=== PATIENT | female | born 1970 | race African-American/Black ===

== ENCOUNTER 2018-01-09 08:03 | Emergency (ER) | payer MEDICAID, OTHER ==
[~2018-01-09] VITALS: Ht 165.1 cm; Wt 85.0 kg
[~2018-01-09 08:03] MED LIST: ALPR2TAB2 PO; CALC1TAB17 PO; D-ME473S8 PO; ESZO2TAB30 PO; HYDR-4009 PO; NAPR-681 PO; ZOLP10TA2 PO
[2018-01-09 08:04] VITALS: BP 129/59
[2018-01-09 09:32] LABS: CHLORIDE 112 mEq/L (98-107)
[2018-01-09 09:33] LABS: PROTHROMBIN TIME 10.2 sec (9.4-11.6)
[2018-01-09 09:34] LABS: EOSINOPHILS % 1.2 % (0.0-5.0); HEMATOCRIT. 35.1 % (36.0-48.0); HEMOGLOBIN. 11.8 g/dL (12.0-16.0); LYMPHOCYTES % 21.3 % (20.0-50.0); MEAN CORPUSCULAR HEMOGLOBIN 29.6 pg (28.0-32.0); MEAN CORPUSCULAR VOLUME 88.2 fL (81.0-99.0); MEAN PLATELET VOLUME 8.2 fl (7.4-10.4); MONOCYTES % 6.6 % (2.0-8.0); NEUTROPHILS % 69.9 % (40.0-76.0); PLATELET 279 x1000/uL (130-400); RED BLOOD CELL COUNT 3.98 mill/uL (4.2-5.4); RED CELL DISTRIBUTION WIDTH 13.4 % (11.6-14.6)
[2018-01-09 09:54] LABS: HCG SCREEN NEGATIVE
[2018-01-09] MEDS ORDERED: LORAZEPAM 0.5MG TABLET PO ONE (10:30)
== END 2018-01-09 10:54 | disposition home or self-care (01) ==
LOC: ER 08:23
DX: F41.1 Generalized anxiety disorder (principal); F41.9 Anxiety disorder, unspecified; I10 Essential (primary) hypertension; Z88.0 Allergy status to penicillin; Z88.2 Allergy status to sulfonamides
CPT/HCPCS: 36415; 71045; 80053; 84484; 84703; 85025; 85610; 93005; 99285

== ENCOUNTER 2018-02-02 02:11 | Emergency (ER) | payer MEDICAID ==
[~2018-02-02] VITALS: Ht 167.6 cm; Wt 92.0 kg
[2018-02-02] MEDS ORDERED: KETOROLAC 60MG/2ML VIAL IM ONE (03:00)
[2018-02-02 05:25] VITALS: BP 120/58
== END 2018-02-02 05:58 | disposition home or self-care (01) ==
LOC: ER 02:54
DX: M25.572 Pain in left ankle and joints of left foot (principal); M79.672 Pain in left foot; I10 Essential (primary) hypertension; Z88.2 Allergy status to sulfonamides; Z88.0 Allergy status to penicillin; Z98.890 Other specified postprocedural states; Z96.659 Presence of unspecified artificial knee joint
CPT/HCPCS: 73610; 73630; 96372; 99284; J1885; Z7610

== ENCOUNTER 2018-06-30 11:36 | Emergency (ER) | payer MEDICAID ==
[~2018-06-30] VITALS: Ht 167.6 cm; Wt 93.0 kg
[~2018-06-30 11:36] MED LIST changes: -ESZO2TAB30 PO; +ESZO2TAB31 PO
[2018-06-30] MEDS ORDERED: SODIUM CHLORIDE 0.9% 1,000 ML IV ONE (13:50)
[2018-06-30] MEDS ORDERED: ONDANSETRON HCL 4MG/2ML INJ IV STA (13:50)
[2018-06-30] MEDS ORDERED: KETOROLAC 30MG/ML VIAL IV STA (13:50)
[2018-06-30 14:57] LABS: HEMATOCRIT. 40.1 % (36.0-48.0); HEMOGLOBIN. 13.4 g/dL (12.0-16.0); MEAN CORPUSCULAR HEMOGLOBIN 29.5 pg (28.0-32.0); MEAN CORPUSCULAR VOLUME 88.1 fL (81.0-99.0); RED BLOOD CELL COUNT 4.55 mill/uL (4.2-5.4); RED CELL DISTRIBUTION WIDTH 13.2 % (11.6-14.6)
[2018-06-30 14:59] LABS: CHLORIDE 110 mEq/L (98-107)
[2018-06-30 15:00] LABS: PROTHROMBIN TIME 10.3 sec (9.1-11.1)
[2018-06-30 15:51] LABS: MEAN PLATELET VOLUME 9.8 fl (7.4-10.4); PLATELET 271 x1000/uL (130-400)
[2018-06-30 15:52] LABS: PLATELET ESTIMATE NORMAL
[2018-06-30 18:07] LABS: CLARITY URINE CLEAR (CLEAR); COLOR URINE DARK YELLOW (YELLOW); KETONES URINE 3+ (NEGATIVE); LEUKOCYTE ESTERASE URINE NEGATIVE (NEGATIVE); NITRITE URINE NEGATIVE (NEGATIVE); OCCULT BLOOD URINE NEGATIVE (NEGATIVE); PH URINE 6.5 (4.5-8.0); PROTEIN URINE TRACE (NEGATIVE); SPECIFIC GRAVITY URINE 1.028 (1.005-1.030)
[2018-06-30 18:50] VITALS: BP 128/70
== END 2018-06-30 19:21 | disposition home or self-care (01) ==
LOC: ER 13:34
DX: R10.84 Generalized abdominal pain (principal); R11.2 Nausea with vomiting, unspecified; I20.9 Angina pectoris, unspecified; I10 Essential (primary) hypertension; Z79.82 Long term (current) use of aspirin; Z88.0 Allergy status to penicillin; Z88.2 Allergy status to sulfonamides; Z88.1 Allergy status to other antibiotic agents; Z98.890 Other specified postprocedural states; Z96.659 Presence of unspecified artificial knee joint
CPT/HCPCS: 36415; 74176; 80053; 81003; 81025; 83690; 85025; 85610; 96361; 96374; 96375; 99285; J1885; J2405; J7030

== ENCOUNTER 2018-12-18 09:55 | Emergency (ER) | payer MEDICAID ==
[~2018-12-18] VITALS: Ht 167.6 cm; Wt 98.0 kg
[2018-12-18] MEDS ORDERED: KETOROLAC 30MG/ML VIAL IM ONE (10:15)
[2018-12-18] MEDS ORDERED: HYDROCODONE/ACETAMINOPHEN 10/325MG TABLET PO ONE (10:15)
[2018-12-18 11:30] VITALS: BP 115/85
== END 2018-12-18 12:08 | disposition home or self-care (01) ==
LOC: ER 09:55
DX: S89.81XA Other specified injuries of right lower leg, initial encounter (principal); X58.XXXA Exposure to other specified factors, initial encounter; Y93.89 Activity, other specified; Y92.89 Other specified places as the place of occurrence of the external cause; M13.862 Other specified arthritis, left knee; M13.861 Other specified arthritis, right knee; Z88.0 Allergy status to penicillin; Z88.2 Allergy status to sulfonamides; Z88.8 Allergy status to other drugs, medicaments and biological substances
CPT/HCPCS: 73562; 96372; 99283; J1885; L1830

== ENCOUNTER 2020-05-12 14:49 | Inpatient (IN) | payer MEDICAID, OTHER ==
[~2020-05-12] VITALS: Ht 167.6 cm; Wt 105.7 kg
[2020-05-12] MEDS ORDERED: MORPHINE SULFATE 4 MG/ML CPJ (NOT FOR IM USE) IV ONE (19:30)
[2020-05-12 20:10] LABS: BASOPHILS % 0.5 % (0.0-2.0); EOSINOPHILS % 0.2 % (0.0-5.0); HEMATOCRIT. 39.9 % (36.0-48.0); HEMOGLOBIN. 13.3 g/dL (12.0-16.0); LYMPHOCYTES % 23.4 % (20.0-50.0); MEAN CORPUSCULAR HEMOGLOBIN 29.1 pg (28.0-32.0); MEAN CORPUSCULAR VOLUME 87.3 fL (81.0-99.0); MEAN PLATELET VOLUME 8.8 fl (7.4-10.4); MONOCYTES % 5.7 % (2.0-8.0); NEUTROPHILS % 70.2 % (40.0-76.0); PLATELET 298 x1000/uL (130-400); RED BLOOD CELL COUNT 4.57 mill/uL (4.2-5.4); RED CELL DISTRIBUTION WIDTH 13.4 % (11.6-14.6)
[2020-05-12 20:14] LABS: CHLORIDE 110 mEq/L (98-107)
[2020-05-12 20:18] LABS: INR 1.1; PROTHROMBIN TIME 11.1 sec (9.6-11.0)
[2020-05-12 20:31] LABS: HCG SCREEN NEGATIVE
[2020-05-12] MEDS ORDERED: ONDANSETRON 4MG ODT PO ONE (22:15)
[2020-05-12] MEDS ORDERED: HYDROCODONE/ACETAMINOPHEN 5/325MG TABLET PO ONE (22:15)
[2020-05-12] MEDS ORDERED: MORPHINE SULFATE 4 MG/ML CPJ (NOT FOR IM USE) IV NR (23:45)
[2020-05-13 00:10] LABS: CLARITY URINE CLOUDY (CLEAR); COLOR URINE DK YELLOW (YELLOW); KETONES URINE TRACE (NEGATIVE); LEUKOCYTE ESTERASE URINE NEGATIVE (NEGATIVE); NITRITE URINE NEGATIVE (NEGATIVE); OCCULT BLOOD URINE NEGATIVE (NEGATIVE); PROTEIN URINE 1+ (NEGATIVE)
[2020-05-13] MEDS ORDERED: IOHEXOL-350 100 ML BOTTLE ONE (01:37)
[2020-05-13] MEDS: ONDANSETRON HCL 4MG/2ML INJ IV PRN ×3 (06:14→15:21)
[2020-05-13] MEDS ORDERED: MORPHINE SULFATE 2 MG/ML CPJ (NOT FOR IM USE) IV PRN (06:15)
[2020-05-13 10:28] VITALS: BP 118/72
[2020-05-13] MEDS ORDERED: ACETAMINOPHEN 325MG TABLET PO PRN (10:30)
[2020-05-13] MEDS: TRAMADOL 50MG TABLET PO PRN ×2 (10:54→16:39)
[2020-05-13] MEDS ORDERED: OMEPRAZOLE 20MG CAPSULE EXTENDED RELEASE PO SCH (11:00)
[2020-05-13 12:00] VITALS: BP 106/44
[2020-05-13] MEDS ORDERED: DIATR MEGLU/DIATRIZOATE SOLN 30ML PO SCH (12:45)
[2020-05-13] MEDS ORDERED: DIATR MEGLU/DIATRIZOATE SOLN 30ML PO ONE (13:00)
[2020-05-13] MEDS ORDERED: OMEP20CA14 PO (14:46)
[2020-05-13] MEDS ORDERED: IOHEXOL-300 100 ML BOTTLE ONE (14:49)
[2020-05-13] MEDS ORDERED: PIPERACILLIN/TAZOBACTAM 3.375 G/VIAL IV SCH (15:45)
[2020-05-13 16:00] VITALS: BP 110/52
[2020-05-13] MEDS ORDERED: SODIUM CHLORIDE 0.9% 1,000 ML IV SCH (16:00)
[2020-05-13 16:39] VITALS: BP 106/44
[2020-05-13] MEDS ORDERED: METOCLOPRAMIDE HCL 10MG/2ML VIAL IV SCH (17:00)
== END 2020-05-13 17:50 | disposition left against medical advice (07) | DRG 249 ==
LOC: ER 14:49 → MICUSO 22:10 → 8WST 05-13 08:07
PROVIDERS: ADMIT Internal Medicine; ATTEND Internal Medicine
DX: K52.9 Noninfective gastroenteritis and colitis, unspecified (principal); E66.9 Obesity, unspecified; E87.8 Other disorders of electrolyte and fluid balance, not elsewhere classified; I10 Essential (primary) hypertension; M19.90 Unspecified osteoarthritis, unspecified site; Z53.29 Procedure and treatment not carried out because of patient's decision for other reasons; Z96.659 Presence of unspecified artificial knee joint; Z98.891 History of uterine scar from previous surgery; Z86.718 Personal history of other venous thrombosis and embolism; Z71.3 Dietary counseling and surveillance; Z68.37 Body mass index [BMI] 37.0-37.9, adult
CPT/HCPCS: 36415; 71045; 71275; 74177; 80053; 81003; 83880; 84484; 84703; 85025; 85379; 93005; 93971; 96374; 99285; J2270; J2405; J2765; Q0162; Q9963; Q9967

== ENCOUNTER 2021-11-09 12:34 | Emergency (ER) | payer MEDICAID, OTHER ==
[~2021-11-09] VITALS: Ht 167.6 cm; Wt 91.0 kg
[~2021-11-09 12:34] MED LIST changes: -ALPR2TAB2 PO; -CALC1TAB17 PO; -D-ME473S8 PO; -ESZO2TAB31 PO; -HYDR-4009 PO; -NAPR-681 PO; +OMEP20CA14 PO; -ZOLP10TA2 PO
[2021-11-09] MEDS ORDERED: LORAZEPAM 2MG/ML CPJ IV ONE ×2 (13:00→13:45)
[2021-11-09 14:10] LABS: BASOPHILS % 0.7 % (0.0-2.0); EOSINOPHILS % 0.5 % (0.0-5.0); HEMATOCRIT. 39.3 % (36.0-48.0); HEMOGLOBIN. 12.8 g/dL (12.0-16.0); LYMPHOCYTES % 27.2 % (20.0-50.0); MEAN CORPUSCULAR HEMOGLOBIN 27.7 pg (28.0-32.0); MEAN CORPUSCULAR VOLUME 84.9 fL (81.0-99.0); MONOCYTES % 4.9 % (2.0-8.0); NEUTROPHILS % 66.7 % (40.0-76.0); RED BLOOD CELL COUNT 4.63 mill/uL (4.2-5.4); RED CELL DISTRIBUTION WIDTH 14.2 % (11.6-14.6)
[2021-11-09 14:14] LABS: CHLORIDE 111 mEq/L (98-107)
[2021-11-09 14:49] LABS: MEAN PLATELET VOLUME 8.5 fl (7.4-10.4); PLATELET 380 x1000/uL (130-400)
[2021-11-09 16:11] VITALS: BP 125/92
== END 2021-11-09 16:26 | disposition home or self-care (01) ==
LOC: ER 12:43
DX: R07.2 Precordial pain (principal); M79.601 Pain in right arm; R00.0 Tachycardia, unspecified; F41.8 Other specified anxiety disorders; I10 Essential (primary) hypertension
CPT/HCPCS: 36415; 71045; 80053; 83880; 84484; 85025; 93005; 96374; 96376; 99285; J2060